=== PATIENT | female | born 2000 | race Caucasian/White ===

== ENCOUNTER 2021-04-23 09:00 | Emergency (ER) | payer MEDICAID, OTHER ==
[~2021-04-23] VITALS: Ht 154.9 cm; Wt 77.1 kg
[2021-04-23] MEDS ORDERED: SODIUM CHLORIDE 0.9% 1,000 ML IV ONE ×2 (09:15→10:45)
[2021-04-23] MEDS ORDERED: ONDANSETRON HCL 4 MG/2 ML VIAL IV ONE ×2 (09:15→12:30)
[2021-04-23 10:03] LABS: Basophils # (auto) 0.1 10 ^3/uL (0-0.2); Basophils % (auto) 0.8 % (0.0-2.0); Eosinophils # (auto) 0 10 ^3/uL (0-0.8); Eosinophils % (auto) 0.4 % (0.0-7.0); Hematocrit 44.3 % (36.0-46.0); Hemoglobin 14.7 g/dL (12.2-16.2); Lymphocytes # (auto) 1.2 10 ^3/uL (0.4-5.4); Mean Corpuscular Hemoglobin 27.9 pg (28.0-32.0); Mean Corpuscular Hgb Conc. 33.1 g/dL (32.0-36.0); Mean Corpuscular Volume 84.3 fL (80.0-100.0); Monocytes # (auto) 0.4 10 ^3/uL (0-1.3); Monocytes % (auto) 5.5 % (0.0-12.0); Neutrophils # (auto) 5.1 10 ^3/uL (1.6-8.6); Neutrophils % (auto) 75.3 % (37.0-80.0); Nucleated Red Blood Cells % 0.1 %; Red Blood Cells 5.26 10^6/uL (4.0-5.20); White Blood Cell 6.7 10^3/uL (4.4-10.8)
[2021-04-23 10:10] LABS: Urine Bacteria FEW /hpf (None Seen); Urine Blood 1+ /uL (Negative); Urine Mucus FEW (None Seen); Urine Specific Gravity 1.037 (1.001-1.035); Urine WBC 84 /hpf (0 - 5)
[2021-04-23 10:18] VITALS: BP 110/67
[2021-04-23 10:18] LABS: BUN/Creatinine Ratio 17.9; Calcium 9.7 mg/dL (8.5-10.1); Potassium 3.5 mmol/L (3.5-5.1)
[2021-04-23] MEDS ORDERED: cefTRIAXone 1GM/50ML D5W 50 ML IV ONE (10:45)
[2021-04-23] MEDS ORDERED: ONDA-144 PO (11:50)
[2021-04-23] MEDS ORDERED: NITR-87 PO (11:50)
== END 2021-04-23 12:54 | disposition home or self-care (01) ==
LOC: ER 09:00
DX: O21.8 Other vomiting complicating pregnancy (principal); O23.41 Unspecified infection of urinary tract in pregnancy, first trimester; N39.0 Urinary tract infection, site not specified; Z3A.08 8 weeks gestation of pregnancy; Z37.9 Outcome of delivery, unspecified
CPT/HCPCS: 36415; 76801; 80048; 81001; 84702; 85025; 96365; 96375; 96376; 99284; J0696; J2405; J7030

== ENCOUNTER 2021-05-12 10:52 | Emergency (ER) | payer MEDICAID ==
[~2021-05-12] VITALS: Ht 154.9 cm; Wt 89.8 kg
[~2021-05-12 10:52] MED LIST: NITR-87 PO; ONDA-144 PO
[2021-05-12] MEDS ORDERED: LIDOCAINE VISCOUS 2% 15ML UD PO ONE (11:00)
[2021-05-12] MEDS ORDERED: FAMOTIDINE 20 MG TAB PO ONE (11:00)
[2021-05-12] MEDS ORDERED: ALUM & MAG HYDROX-SIMETH LIQ(MAALOX) 30 ML PO ONE (11:00)
[2021-05-12 11:04] VITALS: BP 118/73
[2021-05-12] MEDS ORDERED: FAMOTIDINE (10MG/ML) 2ML VL IV ONE (11:30)
[2021-05-12] MEDS ORDERED: PROMETHAZINE HCL 25 MG/ML 1ML IV ONE (11:30)
[2021-05-12] MEDS ORDERED: METOCLOPRAMIDE HCL 5MG/ml INJ 2ml VIAL IV ONE (11:30)
== END 2021-05-12 13:10 | disposition left against medical advice (07) ==
LOC: ER 10:52
DX: O21.8 Other vomiting complicating pregnancy (principal); Z3A.11 11 weeks gestation of pregnancy; Z53.21 Procedure and treatment not carried out due to patient leaving prior to being seen by health care provider

== ENCOUNTER 2021-06-24 11:09 | Emergency (ER) | payer MEDICAID ==
[~2021-06-24] VITALS: Ht 154.9 cm; Wt 89.8 kg
[2021-06-24 13:27] LABS: Basophils # (auto) 0 10 ^3/uL (0-0.2); Basophils % (auto) 0.9 % (0.0-2.0); Eosinophils # (auto) 0.1 10 ^3/uL (0-0.8); Eosinophils % (auto) 0.9 % (0.0-7.0); Hematocrit 37.9 % (36.0-46.0); Hemoglobin 12.9 g/dL (12.2-16.2); Lymphocytes # (auto) 1.4 10 ^3/uL (0.4-5.4); Lymphocytes % (auto) 25.9 % (10.0-50.0); Mean Corpuscular Hemoglobin 28.2 pg (28.0-32.0); Mean Corpuscular Volume 82.9 fL (80.0-100.0); Monocytes # (auto) 0.3 10 ^3/uL (0-1.3); Monocytes % (auto) 5.7 % (0.0-12.0); Neutrophils # (auto) 3.7 10 ^3/uL (1.6-8.6); Neutrophils % (auto) 66.6 % (37.0-80.0); Red Blood Cells 4.57 10^6/uL (4.0-5.20); Red Cell Distribution Width 13.8 % (11.8-14.3); White Blood Cell 5.5 10^3/uL (4.4-10.8)
[2021-06-24 13:41] LABS: INR 0.94 (0.9-1.15); Partial Thromboplastin Time 29.3 sec (23.6-33.0)
[2021-06-24 14:49] LABS: Calcium 9.1 mg/dL (8.5-10.1); Potassium 3.6 mmol/L (3.5-5.1)
[2021-06-24 14:52] LABS: BUN/Creatinine Ratio 13.3; Bilirubin, Total 0.3 mg/dL (0.2-1.0); Total Protein 7.5 g/dL (6.4-8.2)
[2021-06-24 15:02] LABS: Urine Bacteria FEW /hpf (None Seen); Urine Blood 3+ /uL (Negative); Urine Mucus FEW (None Seen); Urine Specific Gravity 1.023 (1.001-1.035); Urine WBC 5 /hpf (0 - 5)
[2021-06-24 16:27] VITALS: BP 108/56
== END 2021-06-24 16:28 | disposition home or self-care (01) ==
LOC: ER 11:09
DX: O20.8 Other hemorrhage in early pregnancy (principal); Z3A.17 17 weeks gestation of pregnancy
CPT/HCPCS: 36415; 76805; 76817; 80053; 81001; 84702; 85025; 85610; 85730; 86850; 86900; 86901

== ENCOUNTER 2021-07-28 10:29 | Emergency (ER) | payer MEDICAID ==
[~2021-07-28] VITALS: Ht 154.9 cm; Wt 87.1 kg
[2021-07-28 10:35] VITALS: BP 139/61
[2021-07-28 14:26] LABS: Basophils # (auto) 0 10 ^3/uL (0-0.2); Basophils % (auto) 0.5 % (0.0-2.0); Eosinophils # (auto) 0 10 ^3/uL (0-0.8); Eosinophils % (auto) 0.4 % (0.0-7.0); Hematocrit 38.7 % (36.0-46.0); Hemoglobin 13.2 g/dL (12.2-16.2); Lymphocytes # (auto) 1.1 10 ^3/uL (0.4-5.4); Lymphocytes % (auto) 16.6 % (10.0-50.0); Mean Corpuscular Hemoglobin 28.5 pg (28.0-32.0); Mean Corpuscular Hgb Conc. 34.2 g/dL (32.0-36.0); Mean Corpuscular Volume 83.2 fL (80.0-100.0); Monocytes # (auto) 0.5 10 ^3/uL (0-1.3); Monocytes % (auto) 7.3 % (0.0-12.0); Neutrophils # (auto) 4.8 10 ^3/uL (1.6-8.6); Neutrophils % (auto) 75.2 % (37.0-80.0); Nucleated Red Blood Cells % 0.2 %; Red Blood Cells 4.65 10^6/uL (4.0-5.20); Red Cell Distribution Width 13.9 % (11.8-14.3); White Blood Cell 6.3 10^3/uL (4.4-10.8)
[2021-07-28 14:41] LABS: Calcium 9.3 mg/dL (8.5-10.1); Potassium 3.3 mmol/L (3.5-5.1)
[2021-07-28 14:44] LABS: Bilirubin, Total 0.3 mg/dL (0.2-1.0); Total Protein 8.6 g/dL (6.4-8.2)
[2021-07-28 17:35] LABS: Urine Bacteria MOD /hpf (None Seen); Urine WBC 5 /hpf (0 - 5)
[2021-07-28 17:36] LABS: Urine Blood Normal /uL (Negative)
[2021-07-28 17:38] LABS: Urine Specific Gravity 1.036 (1.001-1.035)
[2021-07-28] MEDS ORDERED: NITR-87 PO (18:22)
== END 2021-07-28 20:55 | disposition home or self-care (01) ==
LOC: ER 10:29
DX: O23.42 Unspecified infection of urinary tract in pregnancy, second trimester (principal); N39.0 Urinary tract infection, site not specified; O21.8 Other vomiting complicating pregnancy; Z3A.22 22 weeks gestation of pregnancy
CPT/HCPCS: 36415; 80053; 81001; 83690; 84702; 85025

== ENCOUNTER 2022-12-26 11:29 | Emergency (ER) | payer MEDICAID ==
[~2022-12-26] VITALS: Ht 154.9 cm; Wt 106.1 kg
[2022-12-26 13:02] LABS: Urine Bacteria FEW /hpf (None Seen); Urine Blood Negative /uL (Negative); Urine Clarity HAZY (Clear); Urine Color Yellow (Yellow); Urine Protein, UAD 1+ (Negative); Urine Specific Gravity 1.029 (1.001-1.035); Urine Sperm PRESENT /hpf (None Seen); Urine Urobilinogen Normal (Negative); Urine WBC 6 /hpf (0 - 5); Urine pH 5.5 (5.0-8.0)
[2022-12-26 13:19] VITALS: BP 112/69; PULSE 107; RESP 18; TEMP 98.2; O2SAT 95
[2022-12-26] MEDS ORDERED: DexAMETHasone SOD PHOS 10MG/1ML VIAL INJ IM ONE (13:45)
[2022-12-26] MEDS ORDERED: IBUPROFEN 800 MG TAB PO ONE (13:45)
[2022-12-26 13:50] LABS: COVID19 ANTIGEN SOFIA FIA NEGATIVE (NEGATIVE)
[2022-12-26 13:52] LABS: Rapid Influenza A Negative (Negative); Rapid Influenza B Negative (Negative)
[2022-12-26] MEDS ORDERED: ACET500T58 PO ×2 (15:14→15:24)
[2022-12-26] MEDS ORDERED: LORA10CA PO ×2 (15:14→15:24)
[2022-12-26] MEDS ORDERED: NITR-87 PO ×2 (15:14→15:24)
[2022-12-26] MEDS ORDERED: IBUP-1455 PO ×2 (15:14→15:24)
== END 2022-12-26 15:20 | disposition home or self-care (01) ==
LOC: ER 11:29
DX: J39.8 Other specified diseases of upper respiratory tract (principal); N39.0 Urinary tract infection, site not specified; Z79.899 Other long term (current) drug therapy; Z20.822 Contact with and (suspected) exposure to COVID-19
CPT/HCPCS: 36415; 81001; 81025; 87426; 87804; 96372; 99283; J1100